=== PATIENT | male | born 1950 | race American Indian/Alaskan Native ===

== ENCOUNTER 2019-09-26 03:42 | Emergency (ER) | payer MEDICARE ==
[2019-09-26 04:23] LABS: Basophils # (Auto) 0.1 K/mm3 (0.0-0.1); Basophils % (Auto) 1.3 % (0.0-1.8); Eosinophils % (Auto) 0.9 % (0.0-4.3); Hematocrit 37.4 % (35.5-45.6); Hemoglobin 12.2 gm/dl (11.8-15.2); Lymphocytes # (Auto) 1.4 K/mm3 (1.2-5.4); Lymphocytes % (Auto) 28.4 % (13.4-35.0); Mean Corpuscular HGB Conc 33 % (32-34); Mean Corpuscular Volume 92 fl (84-94); Monocytes # (Auto) 0.3 K/mm3 (0.0-0.8); Monocytes % (Auto) 6.4 % (0.0-7.3); Platelet Count 146 K/mm3 (140-440); Red Blood Count 4.07 M/mm3 (3.65-5.03)
[2019-09-26 04:39] LABS: Alanine Aminotransferase 11 units/L (7-56); BUN/Creatinine Ratio 16; Blood Urea Nitrogen 23 mg/dL (9-20); Calcium 8.9 mg/dL (8.4-10.2); Hemolysis Index 2
[2019-09-26 05:36] LABS: Bilirubin,Urine NEG (Negative); Blood,Urine NEG (Negative); Color,Urine Yellow (Yellow); Protein,Urine <15 mg/dL mg/dL (Negative)
[2019-09-26] MEDS ORDERED: ONDANSETRON 4 MG/2 ML INJ IV ONE (05:38)
[2019-09-26] MEDS ORDERED: fentaNYL 100 MCG/2 ML INJ IV ONE (05:38)
[2019-09-26] MEDS ORDERED: ONDANSETRON 4 MG/2 ML INJ ONE (05:42)
[2019-09-26] MEDS ORDERED: MORPHINE 4 MG/1 ML INJ IV ONE ×2 (07:35→09:41)
--- NOTE | 2019-09-26 07:45 | Emergency Department Report ---
ED Abdominal Pain HPI - General Chief Complaint: Abdominal Pain Stated Complaint: ABD PAIN/NAUSEA Time Seen by Provider: 09/26/19 07:33 Source: patient Mode of arrival: Ambulatory Limitations: No Limitations - History of Present Illness Initial Comments: Mr. Martinez is a 68 yo male with hx of prostate CA in remission, HX of gastric bypass > 10 years ago, arthritis, GERD, hypertension who presents with some moderately severe 7 out of 10 right upper quadrant dull pain radiating to the right shoulder. The pain began 1:30 AM dozing while watching TV. Has nausea without vomiting. No previous history of similar pain. Gradual onset of the pain. Pain is been persistent. Dull in nature. PCP is Dr. So Alas Past surgical history includes gastric bypass at [facility], hernia repair, prostatectomy MD Complaint: abdominal pain -: Gradual, This morning Location: RUQ Radiation: other (right shoulder) Migration to: other (right shoulder) Severity scale (0 -10): 7 Quality: dull Consistency: constant Improves With: nothing Worsens With: nothing Associated Symptoms: nausea - Related Data Home Medications Medication Instructions Recorded Confirmed Last Taken Atenolol [Tenormin] 25 mg PO DAILY 10/27/15 11/09/15 11/08/15 21:30 Cholecalciferol (Vitamin D3) 400 unit PO DAILY 10/27/15 11/09/15 11/07/15 14:00 [Vitamin D] Cyanocobalamin (Vitamin B-12) 1,000 mcg PO DAILY 10/27/15 11/09/15 11/07/15 14:00 [Vitamin B12] Doxazosin [Cardura] 4 mg PO QDAY 10/27/15 11/09/15 11/08/15 21:30 Garlic [Odor Free Garlic] 1,000 mg PO BID 10/27/15 11/09/15 11/07/15 14:00 Iron/Folate No.6/Mv,Mins No.40 1 each PO DAILY 10/27/15 11/09/15 11/07/15 14:00 [Corvite Fe Tablet] Pediatric Multivit 61/D3/Vit K 1 each PO DAILY 10/27/15 11/09/15 11/07/15 14:00 [Complete Formulation Multivit] Ramipril 10 mg PO BID 10/27/15 11/09/15 11/08/15 21:30 Saw Grant Fruit/Zinc Picoli 1 each PO DAILY 10/27/15 11/09/15 11/07/15 14:00 [Saw Grant Capsule] Spironolact/Hydrochlorothiazid 1 each PO DAILY 10/27/15 11/09/15 11/08/15 21:30 [Aldactazide 25-25 Tablet] Turmeric Root Extract [Turmeric] 500 mg PO DAILY 10/27/15 11/09/15 11/07/15 14:00 Verapamil [Calan] 120 mg PO TID 10/27/15 11/09/15 11/09/15 05:15 Vit A/Vit C/Vit E/Selenium Yst 1 each PO DAILY 10/27/15 11/09/15 11/07/15 14:00 [Antioxidant Formula Tablet] Previous Rx's Medication Instructions Recorded Last Taken Type ceFAZolin/NS 2 GM/100 ML [Ancef/Ns 2 gm IV ONCE #1 piggyback 11/07/15 11/09/15 Rx 2 gm/100 ml] HYDROcodone/APAP 5-325 [[place] 1 each PO Q6HR PRN #15 tablet 09/26/19 Unknown Rx 5/325] Promethazine [Phenergan] 25 mg PO Q6HR PRN #10 tab 09/26/19 Unknown Rx Allergies Allergy/AdvReac Type Severity Reaction Status Date / Time No Known Allergies Allergy Unverified 10/27/15 12:36 ED Review of Systems ROS: Stated complaint: ABD PAIN/NAUSEA Other details as noted in HPI Comment: All other systems reviewed and negative Constitutional: denies: fever, malaise Gastrointestinal: abdominal pain, nausea. denies: vomiting Musculoskeletal: denies: back pain ED Past Medical Hx - Past Medical History Previous Medical History?: Yes Hx Hypertension: Yes Hx Congestive Heart Failure: No Hx Diabetes: No Hx GERD: Yes Hx Renal Disease: No Hx Arthritis: Yes Hx Asthma: Yes (2007/LAST USE OF INHALER) Hx COPD: No Hx HIV: No - Surgical History Past Surgical History?: Yes Additional Surgical History: Gastric Bypass, Hernia Repair, Prostatectomy - Social History Smoking Status: Never Smoker Substance Use Type: None - Medications Home Medications: Home Medications Medication Instructions Recorded Confirmed Last Taken Type Atenolol [Tenormin] 25 mg PO DAILY 10/27/15 11/09/1511/08/16 21:30 History Cholecalciferol (Vitamin D3) 400 unit PO DAILY 10/27/15 11/09/15 11/07/15 14:00 History [Vitamin D] Cyanocobalamin (Vitamin B-12) 1,000 mcg PO DAILY 10/27/15 11/09/15 11/07/15 14:00 History [Vitamin B12] Doxazosin [Cardura] 4 mg PO QDAY 10/27/15 11/09/15 11/08/15 21:30 History Garlic [Odor Free Garlic] 1,000 mg PO BID 10/27/15 11/09/15 11/07/15 14:00 History Iron/Folate No.6/Mv,Mins No.40 1 each PO DAILY 10/27/15 11/09/15 11/07/15 14:00 History [Corvite Fe Tablet] Pediatric Multivit 61/D3/Vit K 1 each PO DAILY 10/27/15 11/09/15 11/07/15 14:00 History [Complete Formulation Multivit] Ramipril 10 mg PO BID 10/27/15 11/09/15 11/08/15 21:30 History Saw Grant Fruit/Zinc Picoli 1 each PO DAILY 10/27/15 11/09/15 11/07/15 14:00 History [Saw Grant Capsule] Spironolact/Hydrochlorothiazid 1 each PO DAILY 10/27/15 11/09/15 11/08/15 21:30 History [Aldactazide 25-25 Tablet] Turmeric Root Extract [Turmeric] 500 mg PO DAILY 10/27/15 11/09/15 11/07/15 14:00 History Verapamil [Calan] 120 mg PO TID 10/27/15 11/09/15 11/09/15 05:15 History Vit A/Vit C/Vit E/Selenium Yst 1 each PO DAILY 10/27/15 11/09/15 11/07/15 14:00 History [Antioxidant Formula Tablet] ceFAZolin/NS 2 GM/100 ML [Ancef/Ns 2 gm IV ONCE #1 piggyback 11/07/15 11/09/15 11/09/15 Rx 2 gm/100 ml] HYDROcodone/APAP 5-325 [[place] 1 each PO Q6HR PRN #15 tablet 11/21/19 Unknown Rx 5/325] Promethazine [Phenergan] 25 mg PO Q6HR PRN #10 tab 09/26/19 Unknown Rx ED Physical Exam - General Limitations: No Limitations General appearance: alert, in no apparent distress, other (appears in slight discomfort but nontoxic) - Head Head exam: Present: atraumatic, normocephalic - Eye Eye exam: Present: normal appearance - ENT ENT exam: Present: mucous membranes moist - Neck Neck exam: Present: normal inspection, full ROM - Respiratory Respiratory exam: Present: normal lung sounds bilaterally. Absent: respiratory distress, wheezes, rales, rhonchi - Cardiovascular Cardiovascular Exam: Present: regular rate, normal rhythm, normal heart sounds. Absent: systolic murmur, diastolic murmur, rubs, gallop - GI/Abdominal GI/Abdominal exam: Present: soft, normal bowel sounds. Absent: distended, tenderness, guarding, rebound - Rectal Rectal exam: Present: deferred - Extremities Exam Extremities exam: Present: normal inspection - Neurological Exam Neurological exam: Present: alert, oriented X3 - Psychiatric Psychiatric exam: Present: normal affect, normal mood - Skin Skin exam: Present: warm, dry, intact, normal color. Absent: rash ED Course Vital Signs 09/26/19 09/26/19 09/26/19 03:47 04:59 05:00 Temperature 97.3 F L Pulse Rate 52 L 54 L Respiratory 18 13 Rate Blood Pressure 143/67 145/71 Blood Pressure [Left] O2 Sat by Pulse 97 99 99 Oximetry 09/26/19 09/26/19 09/26/19 05:08 05:16 05:30 Temperature 97.8 F Pulse Rate 54 L 51 L 51 L Respiratory 12 14 14 Rate Blood Pressure 145/71 144/77 Blood Pressure 145/71 [Left] O2 Sat by Pulse 100 97 99 Oximetry 09/26/19 09/26/19 09/26/19 05:46 06:00 06:16 Temperature Pulse Rate 58 L 73 57 L Respiratory 16 16 27 H Rate Blood Pressure 144/77 144/77 135/68 Blood Pressure [Left] O2 Sat by Pulse 99 98 97 Oximetry 09/26/19 09/26/19 09/26/19 06:30 06:46 08:32 Temperature Pulse Rate 50 L 51 L 54 L Respiratory 16 13 Rate Blood Pressure 144/69 144/69 Blood Pressure 154/59 [Left] O2 Sat by Pulse 95 99 Oximetry 09/26/19 09/26/19 09:18 11:47 Temperature Pulse Rate Respiratory Rate Blood Pressure Blood Pressure 151/74 146/70 [Left] O2 Sat by Pulse Oximetry ED Medical Decision Making - Lab Data Result diagrams: 09/26/19 04:02 09/26/19 04:02 Laboratory Results - last 24 hr 09/26/19 09/26/19 09/26/19 04:02 04:02 Unknown WBC 5.1 RBC 4.07 Hgb 12.2 Hct 37.4 MCV 92 MCH 30 MCHC 33 RDW 14.0 Plt Count 146 Lymph % (Auto) 28.4 [place] % (Auto) 6.4 Eos % (Auto) 0.9 Baso % (Auto) 1.3 Lymph # 1.4 [place] # 0.3 Eos # 0.0 Baso # 0.1 Seg Neutrophils % 63.0 Seg Neutrophils # 3.2 Sodium 141 Potassium 4.2 Chloride 102.8 Carbon Dioxide 27 Anion Gap 15 BUN 23 H Creatinine 1.4 Estimated GFR > 60 BUN/Creatinine Ratio 16 Glucose 145 H Calcium 8.9 Total Bilirubin 0.50 AST 16 ALT 11 Alkaline Phosphatase 89 Total Protein 7.0 Albumin 4.0 Albumin/Globulin Ratio 1.3 Lipase 34 Urine Color Yellow Urine Turbidity Clear Urine pH 5.0 Ur Specific Sterling 1.020 Urine Protein <15 mg/dl Urine Glucose (UA) Neg Urine Ketones Neg Urine Blood Neg Urine Nitrite Neg Urine Bilirubin Neg Urine Urobilinogen 4.0 Ur Leukocyte Esterase Neg Urine WBC (Auto) 1.0 Urine RBC (Auto) 2.0 - EKG Data EKG shows normal: sinus rhythm, axis, intervals, QRS complexes, ST-T waves Rate: bradycardia - EKG Data Interpretation: no acute changes, normal EKG 09/26/19 10:02 EKG obtained 0952 Sinus bradycardia rate 55 beats a minute normal axis normal intervals no ST-T signs of ischemia and normal EKG no signs of heart strain or pericarditis - Radiology Data CT abdomen and pelvis, abdominal ultrasound: "Extensive cholelithiasis" no acute process otherwise - Medical Decision Making Mr. Martinez presents with biliary colic. Due to history of acid bypass, he has h ad this for the formation of gallstones. I provided verbal and written education typical Mr. Martinez and his at the bedside. I've referred him to general surgeon manufacturing applications engineer. PCP is Dr. So Alas. He has a very good relationship with his PCP. I strongly encouraged follow-up with both Dr. Alas and our general surgeon manufacturing applications engineer. I have prescribed [place] and promethazine. Normal WBC 5000. Liver function, liver enzymes within normal limits. No indication of cholecystitis on imaging. Critical care attestation.: If time is entered above; I have spent that time in minutes in the direct care of this critically ill patient, excluding procedure time. ED Disposition Clinical Impression: Acute abdominal pain, Cholelithiasis, Biliary colic Disposition: TO HOME OR SELFCARE Is pt being admited?: No Does the pt Need Aspirin: No Condition: Stable Instructions: Biliary Colic (ED) Prescriptions: HYDROcodone/APAP 5-325 [[place] 5/325] 1 each PO Q6HR PRN #15 tablet PRN Reason: Pain Promethazine [Phenergan] 25 mg PO Q6HR PRN #10 tab PRN Reason: Nausea Referrals: SO ALAS MD [Primary Care Provider] - 3-5 Days ZOLTAN TREVINO DO [Staff Physician] - 3-5 Days
--- NOTE | 2019-09-26 08:38 | Ultrasound Report ---
LIMITED RUQ ABDOMINAL ULTRASOUND INDICATION: gallbladder US RUQ abd pain. COMPARISON: No relevant prior imaging study available. FINDINGS: Pancreas: Poorly visualized. Abdominal Aorta: Distal segment is poorly visualized. The proximal and mid segments appear normal. IV C: No significant abnormality. Liver: The liver measures 17.3 cm in length. No significant abnormality. Normal hepatopedal blood fl ow in the main portal vein. Gallbladder: There is extensive cholelithiasis with no gallbladder wall thickening or pericholecystic fluid. No reported sonographic Monroe sign Bile ducts: No significant abnormality. Common bile duct measures 3 mm. Right kidney: No significant abnormality visualized.. Free fluid: None. Additional Findings: None. IMPRESSION: 1. Extensive cholelithiasis but otherwise no evidence of cholecystitis on this exam. Signer Name: Ruel Yeung MD Signed: 09/26/2019 8:34 AM Workstation Name: [id number]
--- NOTE | 2019-09-26 09:26 | Cat Scan Report ---
CT abdomen pelvis wo con INDICATION: ruq abd pain radiating to right shoulder. TECHNIQUE: All CT scans at this location are performed using the following dose modulation technique: Automated exposure control. Helical slices were obtained through the abdomen and pelvis. COMPARISON: None available. FINDINGS: Abdomen: There is mild basilar atelectasis. There is cholelithiasis. The liver, spleen, pancreas, adr enal glands, and kidneys show no acute abnormality. Atherosclerotic calcifications are noted in the a renard and iliac arteries. Changes of prior gastric bypass are noted Due to limitations of field of view the anterior aspect of the midabdomen is not included on this exa m. There are a few loops of small bowel in the anterior abdomen which are not evaluated in the anteri ormost aspect of the peritoneal cavity these levels is not evaluated. No adenopathy is seen. Pelvis: Vascular calcifications are noted. There is a small amount of free fluid in the dependent por tion of the pelvis. No adenopathy is seen. No mass lesions are seen. On review of bone windows, no acute osseous abnormalities are seen. IMPRESSION: 1. Portion of the anterior abdominal cavity is not imaged or evaluated by this study due to limitatio n of field of view. 2. Within the limits of this exam there is no obstruction, inflammation, or free air. 3. There is cholelithiasis 4. Changes of prior gastric bypass are noted. Signer Name: Drew Wu MD Signed: 09/26/2019 9:22 AM Workstation Name: [id number]
[2019-09-26] MEDS ORDERED: KETOROLAC 30 MG/1 ML INJ IV ONE (10:22)
[2019-09-26] MEDS ORDERED: HYDROcodone/ACETAMINOPHEN 5-325 MG TAB PO ONE (10:22)
[2019-09-26 12:15] VITALS: BP 127/56
== END 2019-09-26 12:14 | disposition home or self-care (01) ==
LOC: ED 03:42
DX: K80.70 Calculus of gallbladder and bile duct without cholecystitis without obstruction (principal); I10 Essential (primary) hypertension; K21.9 Gastro-esophageal reflux disease without esophagitis; M19.90 Unspecified osteoarthritis, unspecified site; J45.909 Unspecified asthma, uncomplicated; Z90.89 Acquired absence of other organs; Z79.899 Other long term (current) drug therapy
CPT/HCPCS: 36415; 74176; 76705; 80053; 81001; 83690; 85025; 93005; 93010; 96374; 96375; 96376; 99284; J1885; J2270; J2405; J3010